=== PATIENT | female | born 1990 | race Asian ===

== ENCOUNTER 2019-08-22 00:43 | Inpatient (IN) | payer BC ==
[2019-08-22] MEDS ORDERED: hydrALAZINE 20 MG/ML VIAL SLOW IVP PRN ×2 (01:22→08:49)
[2019-08-22 01:43] VITALS: BMI 20.2
--- NOTE | 2019-08-22 03:23 | PDOC.LDHP ---
Labor and Delivery H&P Chief complaint: contractions HPI: 28YO @ 39.2 WGA who presents to L&D for evaluation for contractions. 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 Patient does understand a great deal of Portuguese though. reports the patient was last seen by Dr. Austin on 08/17 for a routine office visit and was dilated only to 1cm. Reports she began mariposa between 6-7PM last night and states they were initially not super painful and about 13 minute apart. However, states that over the course of the night the contractions became stronger and more frequent to the point of being ~3-4 minutes apart so they decided to come to L&D for evaluation. Patient endorses regular movement and denies any associated vaginal bleeding/ spotting, LOF, discharge or dysuria/hematuria. Does report B/ L low back pain and states she feels the contractions in her lower abdomen. Denies any associated fever/chills or N/V. Current gestational age (weeks): 39 (39.2 WGA) Due date: 08/27/19 Grav: 2 Para: 0 (0010) OB History Details: #1: SAB @ ~10 WGA requiring a D&C #2: term sIUP Current complications: none Past Medical History: none Current medications: pre- vitamins Previous surgical history: dilation and curettage Allergies/Adverse Reactions: Allergies Allergy/AdvReac Type Severity Reaction Status Date / Time No Known Allergies Allergy Verified 08/22/19 01:44 Social history: none - Physical Exam Vital signs reviewed and normal: yes General: breathing through contractions Heart: RRR Lungs: CTAB Abdomen: gravid Extremeties: no edema FHT: category 1 [place] contractions every: 5-7 minutes - Vaginal Exam cm dilated: 2 (2.5) Effacement: 75% Station: -2 - OB Labs Blood type: AB RH: positive Antibody Screen: negative HIV: negative HEPSAg: negative 1 hour GCT: negative 3 hour GTT: 130 GBS: unknown Urine drug screen: not done Rubella: immune - Assessment 28YO @ 39.2 WGA who presents for evaluation for reported regular, painful contractions. - Plan Plan: observation in L&D -: Contractions, r/o labor: - Mariposa ~5-7 minutes apart initially but slightly closer together (~2-4 minutes) since monitoring began. Cat 1 strip w/ baseline in the 130s, accels & moderate variability noted. - SVE @ ~0120 2.5/75/-2. - Will encourage PO hydration and continue monitoring for at least another 2 hours before next cervical check. Dispo: Will continue close monitoring on L&D & plan to recheck cervix ~2-3 hours s/p initial check to decide whether or not to admit for labor. Addendum - Attending - Attending Attestation Date/Time: 08/22/19 [id number] I personally evaluated the patient and discussed the management with Dr. Finn. I agree with the History, Examination, Assessment and Plan documented above.
[2019-08-22] MEDS ORDERED: Methylergonovine 0.2 MG/ML VIAL IM PRN (05:05)
[2019-08-22] MEDS ORDERED: Misoprostol 200 MCG TAB PR PRN (05:05)
[2019-08-22] MEDS ORDERED: Promethazine HCl 25 MG/ML VIAL IM PRN ×2 (05:05→06:22)
[2019-08-22] MEDS ORDERED: Ondansetron PF 4 MG/2 ML Vial IVP PRN ×3 (05:05→08:49)
[2019-08-22] MEDS ORDERED: Butorphanol Tartrate 1 MG/ML VIAL SLOW IVP PRN (05:05)
[2019-08-22] MEDS ORDERED: Carboprost 250 MCG/ML AMP IM PRN (05:05)
[2019-08-22] MEDS ORDERED: Ibuprofen 800 MG TAB PO PRN (05:05)
[2019-08-22] MEDS ORDERED: Lidocaine 1% (PF) 30 ML VIAL SC PRN (05:05)
--- NOTE | 2019-08-22 05:11 | PDOC.LDPN ---
Labor & Delivery Progress Note - Subjective Subjective: painful contractions - Objective Vital signs reviewed and normal: yes General: resting, breathing through contractions SVE: 5.5/100/-1 @ 0500 FHT: category 1, variability present [place] contractions every: 2-5 minutes Resuscitative measures: maternal IV fluids - Assessment (1) Term Code(s): Z34.90 - ENCNTR FOR SUPRVSN OF NORMAL , UNSP, UNSP TRIMESTER Current Visit: Yes Status: Acute (2) History of spontaneous , currently Code(s): O09.299 - SUPRVSN OF PREG W POOR REPRODCTV OR OBSTET HISTORY, UNSP TRI Current Visit: Yes Status: Acute Plan: other -: 28YO @ 39.2 WGA who presented for evaluation for contractions and was found to be in labor. Contractions, in labor: - [place] ~3-5 minutes now & repeat SVE @ 0500 revealed progression to 5.5/ 100/-1. Persistent Cat 1 tracing. - Will admit to L&D for , start IVFs, and continue monitoring w/ next SVE in ~3-4 hours pending labor progression - GBS negative, no need for intrapartum PPX. - Unsure whether or not she wants an epidural. Will have PRN stadol available for now & have patient watch the epidural video if she decides to proceed with one. Dispo: Will admit to L&D for .
[2019-08-22] MEDS ORDERED: Fentanyl 4 mcg/Bup 0.1% Cadd 100 ML ONE (05:24)
[2019-08-22] MEDS ORDERED: Butorphanol Tartrate 1 MG/ML VIAL ONE (05:31)
[2019-08-22 05:41] LABS: Mean Corpuscular HGB CONC 33.7 g/dL (32.0-36.0); Mean Corpuscular Hemoglobin 32.5 pg (27.0-31.0); Mean Corpuscular Volume 96.5 fL (78.0-98.0); Mean Platelet Volume 8.6 fL (7.4-10.4); Platelet Count 287 thou/uL (130-400); RBC Distribution Width 12.4 % (11.5-14.5); Red Blood Cell (RBC) Count 3.99 mill/uL (4.20-5.40); White Blood Cell (WBC) Count 16.8 thou/uL (4.8-10.8)
[2019-08-22] MEDS ORDERED: Lactated Ringer's 500 ML IV PRN (06:22)
[2019-08-22] MEDS ORDERED: diphenhydrAMINE 50 MG/ML VIAL IVP PRN (06:22)
[2019-08-22] MEDS ORDERED: Acetaminophen 325 MG TAB PO PRN (06:22)
[2019-08-22] MEDS ORDERED: ePHEDrine/0.9% NaCl/PF SYRINGE 50 mg/10 ml SLOW IVP PRN (06:22)
[2019-08-22] MEDS ORDERED: Naloxone HCl 0.4 mg/ml Vial IVP PRN ×2 (06:22)
[2019-08-22 06:23] LABS: Hep B Surf Ag Non-Reactive S/CO (NonReactive); Syphilis Antibody Nonreactive (Nonreactive); Syphilis Antibody Index 0.18 S/CO (<1.00 Non-Reactive)
[2019-08-22] MEDS ORDERED: Communication Order-Pharmacy FS SCH (06:30)
[2019-08-22] MEDS ORDERED: Fentanyl 4 mcg/Bupivacaine 0.1% Cassette 100 ML EPIDURAL SCH (06:30)
[2019-08-22] MEDS: NS / Oxytocin 40 units/1000ml 1,000 ML IV PRN ×2 (08:08→09:05)
[2019-08-22] MEDS ORDERED: Bisacodyl 10 MG SUPP PR PRN (08:49)
[2019-08-22] MEDS ORDERED: Milk Of Magnesia 30 ML UDCUP PO PRN (08:49)
[2019-08-22] MEDS ORDERED: Adacel (T-DAP) 0.5 ML SYRINGE IM ONE (08:49)
[2019-08-22] MEDS ORDERED: HYDROcodone/Acetaminophen 5/325 mg Tablet PO PRN ×2 (08:49)
[2019-08-22] MEDS ORDERED: Preparation H Ointment 28 GM TUBE PR PRN (08:49)
[2019-08-22] MEDS ORDERED: Benzocaine-Menthol 82.5 ML CAN TOP PRN (08:49)
[2019-08-22] MEDS ORDERED: Lanolin Ointment 7 GM TUBE TOP PRN (08:49)
[2019-08-22] MEDS ORDERED: NS / Oxytocin 40 units/1000ml 1,000 ML IV SCH (09:00)
--- NOTE | 2019-08-22 09:22 | OP ---
DATE OF PROCEDURE: 08/22/2019 PREOPERATIVE DIAGNOSES: 1. A 28-year-old, G2, P0-0-1-0 presenting at 39 and 2 with active labor. 2. Group B Streptococcus negative. 3. Spontaneous rupture of membranes for clear fluid after epidural. PROCEDURE PERFORMED: 1. Vacuum-assisted vaginal delivery for non-reassuring heart tracing. 2. Repair of a first-degree laceration in the midline and second first degree laceration on the left labia. ANESTHESIA: Epidural. CLINICAL HISTORY: This patient is a 28-year-old, G2, P0-0-1-0, who presented the morning of her delivery with a complaint of regular contractions that became painful at around midnight the night prior. When she came in, she was approximately 1 cm dilated and was noted to have regular contractions. She progressed rapidly to 5 cm dilated and requested an epidural for maternal analgesia. She was admitted and the epidural was placed. Then, as she set up for the epidural, she ruptured with clear fluid spontaneously. The patient was then re-checked approximately an hour afterwards and was noted to be in complete cervical dilation and +2 station. With good maternal effort, the patient was able to push the vertex to . DESCRIPTION OF PROCEDURE: As the head was in the GABY position, there was noted to be a prolonged deceleration down to the 60s that was not recovering despite moving to the left and to the right. The patient also was not able to deliver in the subsequent 2 contractions during deceleration. The patient was quickly described the risks, benefits, and possible complications of a vacuum delivery and the Mityvac vacuum piece was then placed over the presenting cephalic part, making sure to not have any labia or vaginal tissue incorporated with the suction device. The patient just recently had her bladder drained for 175 mL of clear urine, so a Ladd catheter was not used again prior to the delivery. The suction was placed to the green zone on the suction cup and with 2 pulls, the vertex was delivered. There was a loose nuchal cord that was noted and was reduced at the perineum. The anterior shoulder followed by the posterior shoulder, followed by the remainder of the infant's body was quickly delivered. The infant cried spontaneously, was bulb suctioned and stimulated. A double clamp was performed on the umbilical cord and the cord was cut by the father. The was then immediately placed on the abdomen for continued care and stimulation, and the placenta after obtaining a cord sample was delivered spontaneously intact with three-vessel cord. The exploration of the vagina, introitus, and cervix noted a shallow first-degree laceration in the midline and then one adjacent to it on the left vaginolabial surface. These were repaired with a running suture with excellent hemostasis thereafter. The patient tolerated the procedure well and was able to recover on Labor and Delivery in satisfactory condition with her . Again, the was a live born male with Apgars of 8 and 9 at 1 and 5 minutes respectively. Weight was not available at the time of dictation. All needle, sponge, lap, and instrument counts were correct x2 at the end of the procedure. There were no other issues surrounding this procedure. Job ID: [id number]
[2019-08-22] MEDS: Lactated Ringer's 1,000 ML IV SCH ×2 (10:27→14:19)
[2019-08-22] MEDS ORDERED: Bupivacaine 0.5% 10 ML VIAL ONE (13:12)
[2019-08-22] MEDS ORDERED: Lidocaine 2% MPF 10 ML AMP (For Epidural Use) ONE (13:12)
[2019-08-22] MEDS: Prenatal Vitamin 1 TAB PO SCH (14:18)
[2019-08-22] MEDS: Docusate Calcium (SURFAK) 240 MG CAP PO SCH ×2 (14:18→21:43)
[2019-08-22] MEDS: Ibuprofen 800 MG TAB PO SCH ×2 (14:22→21:32)
[2019-08-22] MEDS: Ferrous Sulfate 325 MG TAB PO SCH (15:50)
[2019-08-23] MEDS: Ibuprofen 800 MG TAB PO SCH (05:12)
[2019-08-23] MEDS: Lactated Ringer's 1,000 ML IV SCH ×3 (05:23→20:53)
[2019-08-23] MEDS: Prenatal Vitamin 1 TAB PO SCH (09:31)
[2019-08-23] MEDS: Docusate Calcium (SURFAK) 240 MG CAP PO SCH (09:31)
[2019-08-23] MEDS: Ferrous Sulfate 325 MG TAB PO SCH ×2 (09:34→17:49)
[2019-08-23] MEDS: Ibuprofen 100 MG/5 ML UDCUP PO SCH ×2 (14:09→21:41)
[2019-08-23] MEDS: Docusate Sodium 100 MG/10 ML UDCUP PO SCH (21:43)
[2019-08-24] MEDS: Ibuprofen 100 MG/5 ML UDCUP PO SCH ×2 (05:37→15:12)
[2019-08-24 08:36] VITALS: BP 111/75; TEMP 97.7
[2019-08-24] MEDS: Ferrous Sulfate 325 MG TAB PO SCH ×2 (08:51→15:13)
[2019-08-24] MEDS: Docusate Sodium 100 MG/10 ML UDCUP PO SCH (08:52)
[2019-08-24] MEDS: Prenatal Vitamin 1 TAB PO SCH (08:52)
[2019-08-24] MEDS: Lactated Ringer's 1,000 ML IV SCH (12:27)
== END 2019-08-24 16:35 | disposition home or self-care (01) | DRG 807 ==
LOC: L&D/OP 00:43 → L&D 05:42 → 3SW 11:40
PROVIDERS: ADMIT Obstetrics & Gynecology; ATTEND Obstetrics & Gynecology
PROC: 10D07Z6 Extraction of Products of Conception, Vacuum, Via Natural or Artificial Opening (ICD-10-PCS; principal; 2019-08-22)
PROC: 0HQ9XZZ Repair Perineum Skin, External Approach (ICD-10-PCS; 2019-08-22)
DX: O62.3 Precipitate labor (principal); Z37.0 Single live birth; Z3A.39 39 weeks gestation of pregnancy; O76 Abnormality in fetal heart rate and rhythm complicating labor and delivery; O70.0 First degree perineal laceration during delivery
CPT/HCPCS: 36415; 51701; 85027; 86780; 86850; 86900; 86901; 87340; 99285; J0595; J2001; J3490